=== PATIENT | male | born 1995 | race Caucasian/White ===

== ENCOUNTER → 2016-09-17 | Outpatient (CLI) | payer BC ==
--- NOTE | 2016-09-18 10:20 | KCIC ---
PROCEDURE MRI study of the right knee without contrast HISTORY Increasing right knee pain in recent months. Swelling. TECHNIQUE Noncontrast MRI sequences of the right knee were performed in all 3 planes. COMPARISON None available. FINDINGS The anterior and posterior cruciate ligaments are intact. The quadriceps and patellar tendons are intact. No articular surface tear of the medial or lateral meniscus is seen. The medial collateral ligament is intact and no meniscal capsular separation is seen. The iliotibial band and lateral collateral ligament complex and popliteus tendon are intact. No posterior lateral corner injury is seen. No bone contusion or fracture or marrow infiltrative process is seen. No focal osteochondral abnormality of the medial or lateral tibiofemoral joint compartments is seen. The patella is normally aligned. No focal osteochondral abnormality of the patellofemoral joint compartment is seen. The medial and lateral retinacular ligaments are intact. No distended Chi's cyst is seen. No significant joint effusion is seen. No loose osteochondral body is evident. No muscle edema is seen. IMPRESSION No significant internal derangement of the right knee is seen. Electronically signed by: Blaine Cao MD (Sep 18, 2016 10:18:26)
== END | disposition home or self-care (01) ==
LOC: KCIC MRI 16:51
PROVIDERS: ATTEND Chiropractor
DX: M25.561 Pain in right knee (principal)
CPT/HCPCS: 73721